=== PATIENT | female | born 1955 | race Caucasian/White ===

== ENCOUNTER → 2017-02-12 | Outpatient (CLI) | payer OTHER, BC ==
[~2017-02-12] MED LIST: 5-HY100C3 PO; ASPI-650 PO; FLUO10TA PO; GLUCOSAMINE 1,1 EACH PO; MELA5TAB19 PO; NAPR500T4 PO; OXYC-302 PO; THYROID ARMOUR PO; ZOLP10TA5 PO
== END | disposition home or self-care (01) ==
LOC: CFH 07:23
PROVIDERS: ATTEND Family Medicine
DX: Z12.31 Encounter for screening mammogram for malignant neoplasm of breast (principal); Z80.3 Family history of malignant neoplasm of breast
CPT/HCPCS: 77063; G0202

== ENCOUNTER 2018-03-06 13:05 | Outpatient (CLI) | payer BC, OTHER ==
[~2018-03-06 13:05] MED LIST changes: +NAPR-685 PO; -NAPR500T4 PO
== END 2018-03-06 23:59 | disposition home or self-care (01) ==
LOC: CFH 13:05
PROVIDERS: ATTEND Family Medicine
DX: Z12.31 Encounter for screening mammogram for malignant neoplasm of breast (principal)
CPT/HCPCS: 77063; 77067

== ENCOUNTER → 2018-12-31 | Outpatient (CLI) | payer OTHER ==
[~2018-12-31] MED LIST changes: +CHOL10003 PO; +CYAN250013 PO; +Collagen PO; +MELA5TAB14 PO; -MELA5TAB19 PO; +NIAC500T85 PO; +THYR15TA PO
== END | disposition home or self-care (01) ==
LOC: STAR 10:08
PROVIDERS: ATTEND Orthopaedic Surgery
DX: Z01.818 Encounter for other preprocedural examination (principal); M17.12 Unilateral primary osteoarthritis, left knee; R94.31 Abnormal electrocardiogram [ECG] [EKG]
CPT/HCPCS: 87081; 93005

== ENCOUNTER 2019-01-08 07:46 | Observation (INO) | payer OTHER ==
[2019-01-07] MEDS: FLUOXETINE 10 MG CAP PO SCH (22:10)
[2019-01-07] MEDS: DOCUSATE 100 MG CAPSULE PO SCH (22:10)
[~2019-01-08] VITALS: Ht 175.3 cm; Wt 106.0 kg
[~2019-01-08 07:46] MED LIST changes: +FENTANYL PF 250 MCG/5ML ONE; +MIDAZOLAM 1 MG/ML, 2ML ONE
[2019-01-08 08:20] VITALS: BP 127/83
[2019-01-08] MEDS ORDERED: LACTATED RINGERS 1,000 ML IV SCH (08:27)
[2019-01-08] MEDS ORDERED: MAGNESIUM HYDROXIDE 8%, 30ML UDC PO PRN (09:00)
[2019-01-08] MEDS: OXYcodone IR 5MG TABLET PO SCH ×3 (09:00→19:46)
[2019-01-08] MEDS ORDERED: BISACODYL 10 MG SUPP PR PRN (09:00)
[2019-01-08] MEDS ORDERED: ONDANSETRON 4 MG TABLET PO PRN (09:00)
[2019-01-08] MEDS ORDERED: SCOPOLAMINE PATCH, 1.5MG PATCH.TD72 TD SCH (09:00)
[2019-01-08] MEDS: ACETAMINOPHEN 325 MG TABLET PO SCH ×4 (09:00→21:00)
[2019-01-08] MEDS ORDERED: ACETAMINOPHEN 500 MG TABLET PO ONE (09:00)
[2019-01-08] MEDS ORDERED: SENNA/DOCUSATE TABLET PO PRN (09:00)
[2019-01-08] MEDS: DOCUSATE 100 MG CAPSULE PO SCH (09:00)
[2019-01-08] MEDS ORDERED: MORPHINE SULFATE 4 MG/ML, 1ML IVPush PRN (09:00)
[2019-01-08] MEDS ORDERED: DIPHENHYDRAMINE 25 MG CAPSULE PO PRN (09:00)
[2019-01-08] MEDS ORDERED: GABAPENTIN 300 MG CAPSULE PO ONE (09:00)
[2019-01-08] MEDS ORDERED: ZOLPIDEM 10MG TABLET PO PRN (09:00)
[2019-01-08] MEDS ORDERED: PROMETHAZINE 12.5 MG SUPP PR PRN (09:00)
[2019-01-08] MEDS ORDERED: SCOPOLAMINE PATCH, 1.5MG PATCH.TD72 TD ONE (09:00)
[2019-01-08] MEDS ORDERED: TRANEXAMIC ACID 100 MG/ML, 10ML ONE ×2 (09:29)
[2019-01-08] MEDS ORDERED: ONDANSETRON 2MG/ML, 2ML ONE (10:25)
[2019-01-08] MEDS ORDERED: PROPOFOL 10 MG/ML, 20ML ONE (10:25)
[2019-01-08] MEDS ORDERED: CEFAZOLIN 1,000 MG ONE (10:25)
[2019-01-08] MEDS ORDERED: DEXAMETHASONE 4 MG/ML, 1ML ONE (10:25)
[2019-01-08] MEDS ORDERED: SUCCINYLCHOLINE 20 MG/ML, 10ML ONE (10:25)
[2019-01-08] MEDS ORDERED: ROCURONIUM 10 MG/ML,10ML ONE (10:25)
[2019-01-08] MEDS ORDERED: ALBUTEROL SULFATE 2.5 MG/3 ML NPPB PRN (11:00)
[2019-01-08] MEDS ORDERED: LABETALOL 5MG/ML, 20ML IV PRN (11:00)
[2019-01-08] MEDS ORDERED: KETOROLAC 30 MG/1 ML IV PRN (11:00)
[2019-01-08] MEDS ORDERED: MEPERIDINE/PF 25MG/0.5ML IVPush PRN (11:00)
[2019-01-08] MEDS ORDERED: PROMETHAZINE 25 MG/ML, 1ML IV PRN (11:00)
[2019-01-08] MEDS ORDERED: METOCLOPRAMIDE 5 MG/ML, 2ML IV PRN (11:00)
[2019-01-08] MEDS ORDERED: OXYcodone 5 MG/5 ML ORAL.SOL UDC PO PRN (11:00)
[2019-01-08] MEDS ORDERED: hydrALAzine 20 MG/ML, 1ML IV PRN (11:00)
[2019-01-08] MEDS ORDERED: FENTANYL PF 100 MCG/2ML IV PRN (11:00)
[2019-01-08] MEDS ORDERED: ONDANSETRON 2MG/ML, 2ML IVPush PRN (11:00)
[2019-01-08] MEDS ORDERED: BUPIVACAINE/PF-EPI 0.25% 1:200K INFIL ONE (11:58)
[2019-01-08] MEDS: KETOROLAC 30 MG/1 ML IV SCH ×2 (12:16→19:45)
[2019-01-08] MEDS ORDERED: HYDROmorphone 1 MG/ML, 1ML VIAL ONE (12:31)
[2019-01-08] MEDS ORDERED: KETOROLAC 30 MG/1 ML ONE (12:31)
[2019-01-08] MEDS: HYDROmorphone 1 MG/ML, 1ML INJ IV PRN ×2 (12:38→12:46)
[2019-01-08] MEDS ORDERED: PROMETHAZINE 25 MG/ML, 1ML ONE (12:44)
[2019-01-08] MEDS ORDERED: OXYcodone 5 MG/5 ML ORAL.SOL UDC ONE (13:08)
[2019-01-08 14:25] VITALS: BP 133/85
[2019-01-08 19:08] VITALS: BP 158/93
[2019-01-08] MEDS: D5%-0.45% NACL 1,000 ML IV SCH (19:45)
[2019-01-08] MEDS: CEFAZOLIN PMX 1GM/50ML 50 ML IVPB SCH (19:45)
[2019-01-08 20:00] VITALS: BP 132/74
[2019-01-09] MEDS: ACETAMINOPHEN 325 MG TABLET PO SCH ×2 (01:48→06:09)
[2019-01-09] MEDS: OXYcodone IR 5MG TABLET PO SCH ×2 (01:48→07:49)
[2019-01-09 03:20] VITALS: BP 113/74
[2019-01-09] MEDS: KETOROLAC 30 MG/1 ML IV SCH (04:23)
[2019-01-09] MEDS: CEFAZOLIN PMX 1GM/50ML 50 ML IVPB SCH (04:23)
[2019-01-09 04:27] VITALS: BP 118/77
[2019-01-09] MEDS: D5%-0.45% NACL 1,000 ML IV SCH (04:35)
[2019-01-09] MEDS ORDERED: THYROID PORK PO SCH (06:00)
[2019-01-09] MEDS: DOCUSATE 100 MG CAPSULE PO SCH (07:48)
[2019-01-09 08:00] VITALS: BP 113/75
[2019-01-09] MEDS: FLUOXETINE 10 MG CAP PO SCH (09:00)
[2019-01-09] MEDS ORDERED: THYROID 60 MG HOMEMEDPO SCH (09:00)
[2019-01-09] MEDS ORDERED: ASPIRIN 325 MG TABLET EC PO SCH (18:00)
== END 2019-01-09 12:15 | disposition home or self-care (01) ==
LOC: OUT 07:46 → ORIP 08:41 → 4NE 14:35 → DCLOUNGE 01-09 12:02
PROVIDERS: ADMIT Orthopaedic Surgery; ATTEND Orthopaedic Surgery
DX: M17.12 Unilateral primary osteoarthritis, left knee (principal); E66.9 Obesity, unspecified; E07.9 Disorder of thyroid, unspecified; Z68.35 Body mass index [BMI] 35.0-35.9, adult; Z79.899 Other long term (current) drug therapy; Z87.891 Personal history of nicotine dependence; F10.10 Alcohol abuse, uncomplicated; Z86.718 Personal history of other venous thrombosis and embolism; Z91.040 Latex allergy status; Z88.8 Allergy status to other drugs, medicaments and biological substances; Z91.048 Other nonmedicinal substance allergy status
CPT/HCPCS: 27447; 73560; 96365; 96366; 96375; 96376; 97161; C1713; C1776; G0378; J0330; J0690; J1100; J1170; J1885; J2250; J2405; J2550; J2704; J3010; J7120

== ENCOUNTER 2019-01-27 20:04 | Inpatient (IN) | payer OTHER ==
[~2019-01-27] VITALS: Ht 175.3 cm; Wt 107.4 kg
[~2019-01-27 20:04] MED LIST changes: -FENTANYL PF 250 MCG/5ML ONE; -MIDAZOLAM 1 MG/ML, 2ML ONE
--- NOTE | 2019-01-27 20:27 | NUR ---
Pt to ED from home w/ . nausea/vomiting since Saturday. also c/o SOB, fever, dark urine, cough. Denies abd/back pain. A&Ox4 GCS 15. Beckie NOONAN at bedside. vss, tachy 100s. no flu shot this year.
[2019-01-27] MEDS ORDERED: IBUPROFEN 200 MG TABLET ONE (20:39)
[2019-01-27] MEDS ORDERED: IBUPROFEN 600 MG TABLET PO ONE (21:00)
[2019-01-27] MEDS ORDERED: SODIUM CHLORIDE 0.9% 1,000ML IVBOLUS ONE (21:00)
[2019-01-27] MEDS ORDERED: SODIUM CHLORIDE FLUSH 10ML SYR IVF ONE (21:00)
[2019-01-27 21:03] LABS: BASOPHILS % (AUTO) 0 % (0-1); EOSINOPHILS # (AUTO) 0.02 x10^3/uL (0-0.4); EOSINOPHILS % (AUTO) 0 % (1-7); LYMPHOCYTES # (AUTO) 0.53 x10^3/uL (1-3.4); LYMPHOCYTES % (AUTO) 6 % (22-44); MD NO; MEAN CORPUSCULAR HEMOGLOBIN 28.9 pg (27.0-34.8); MEAN CORPUSCULAR HGB CONC 32.3 g/dL (32.4-35.8); MEAN CORPUSCULAR VOLUME 89.6 fL (80-100); MEAN PLATELET VOLUME 7.3 fL (7.4-10.4); MONOCYTES # (AUTO) 0.44 x10^3/uL (0.2-0.8); MONOCYTES % (AUTO) 5 % (2-9); NEUTROPHILS # (AUTO) 8.53 x10^3/uL (1.8-6.8); NEUTROPHILS % (AUTO) 90 % (42-75); PLATELET COUNT 272 x10^3/uL (130-400); RED BLOOD COUNT 4.28 x10^6/uL (3.82-5.3); RED CELL DISTRIBUTION WIDTH 13.6 % (9.6-15.2)
[2019-01-27 21:12] LABS: ALANINE AMINOTRANSFERASE 40 U/L (12-78); ALBUMIN 2.9 g/dL (3.4-5.0); ANION GAP 7 mmol/L (5-15); CALCIUM 9.4 mg/dL (8.5-10.1); CHLORIDE 99 mmol/L (98-107); CREATININE 1.83 mg/dL (0.55-1.02)
[2019-01-27 21:14] LABS: ALKALINE PHOSPHATASE 204 U/L (45-117); BILIRUBIN,TOTAL 0.9 mg/dL (0.2-1.0); TOTAL PROTEIN 7.8 g/dL (6.4-8.2)
[2019-01-27 21:16] LABS: CULTURE INDICATED? YES; MICROSCOPIC INDICATED
--- NOTE | 2019-01-27 21:17 | NUR ---
labs drawn and sent, piv est, ivf infusing, flu swab sent, cxr pending. call lemus in reach. as
[2019-01-27 21:32] LABS: RAPID INFLUENZA A Negative (Negative); RAPID INFLUENZA B Negative (Negative)
[2019-01-27] MEDS ORDERED: CEFTRIAXONE PMX 1GM/50ML 50 ML ONE (21:57)
[2019-01-27] MEDS ORDERED: CEFTRIAXONE PMX 1GM/50ML 50 ML IV ONE ×2 (22:00→23:00)
--- NOTE | 2019-01-27 22:01 | NUR ---
pt to be admitted. pt aware and agrees. lab at bedside drawing cultures. abx to hang after. vss. call lemus in reach. as
--- NOTE | 2019-01-27 22:16 | NUR ---
REPORT TO ARELIS MORALES [id number]
--- NOTE | 2019-01-27 22:48 | NUR ---
F/U CALL PLACED TO CT REGARDING DELAY IN TESTING SO PT CAN BE TAKEN TO FLOOR, TECH STS PT IS UP NEXT.
--- NOTE | 2019-01-27 22:56 | NUR ---
PT AT CT.
[2019-01-27] MEDS ORDERED: PROMETHAZINE 25 MG/ML, 1ML IM PRN (23:00)
[2019-01-27] MEDS ORDERED: BISACODYL 10 MG SUPP PR PRN (23:00)
[2019-01-27] MEDS ORDERED: POLYETHYLENE GLYCOL 17 GM PACKET PO PRN (23:00)
[2019-01-27] MEDS ORDERED: DOCUSATE 100 MG CAPSULE PO PRN (23:00)
[2019-01-27] MEDS ORDERED: hydrALAzine 20 MG/ML, 1ML IVPush PRN (23:00)
[2019-01-27] MEDS ORDERED: OXYcodone IR 5MG TABLET PO PRN (23:00)
[2019-01-27] MEDS ORDERED: ONDANSETRON 2MG/ML, 2ML IVPush PRN (23:00)
[2019-01-27 23:19] VITALS: BP 108/64
[2019-01-27 23:27] LABS: FREE T4 (FREE THYROXINE) 1.07 ng/dL (0.76-1.46)
[2019-01-27 23:28] LABS: HEMOGLOBIN A1C 5.9 % (4.2-6.3)
[2019-01-27 23:45] VITALS: BP 108/69
[2019-01-28] MEDS: SODIUM CHLORIDE 0.9% 1,000 ML IV SCH ×2 (00:40→08:31)
[2019-01-28] MEDS: ZOLPIDEM 10MG TABLET PO SCH ×2 (00:46→22:03)
[2019-01-28 07:18] LABS: MEAN CORPUSCULAR HEMOGLOBIN 28.8 pg (27.0-34.8); MEAN CORPUSCULAR HGB CONC 32.8 g/dL (32.4-35.8); MEAN CORPUSCULAR VOLUME 87.7 fL (80-100); PLATELET COUNT 231 x10^3/uL (130-400); RED BLOOD COUNT 4.01 x10^6/uL (3.82-5.3); RED CELL DISTRIBUTION WIDTH 13.8 % (9.6-15.2)
[2019-01-28 07:25] LABS: ALANINE AMINOTRANSFERASE 34 U/L (12-78); ALBUMIN 2.7 g/dL (3.4-5.0); ANION GAP 8 mmol/L (5-15); CALCIUM 9.1 mg/dL (8.5-10.1); CHLORIDE 102 mmol/L (98-107); CREATININE 1.53 mg/dL (0.55-1.02)
[2019-01-28 07:27] LABS: ALKALINE PHOSPHATASE 192 U/L (45-117); BILIRUBIN,TOTAL 0.6 mg/dL (0.2-1.0); CHOL/HDL RATIO 16.9; CHOLESTEROL, TOTAL 135 mg/dL (140-239); HDL CHOL % 6 % (28-40); HDL CHOLESTEROL (DIRECT) 8 mg/dL (40-60); LDL CHOLESTEROL,CALCULATED 67 mg/dL (54-169); LDL/HDL RATIO 8.4 (0.5-3.0); TOTAL PROTEIN 7.4 g/dL (6.4-8.2); TRIGLYCERIDES 301 mg/dL (50-200); VLDL CHOLESTEROL 60 mg/dL (0-25)
[2019-01-28 07:48] LABS: BASOPHILS # (AUTO) 0.02 x10^3/uL (0-0.1); BASOPHILS % (AUTO) 0 % (0-1); EOSINOPHILS # (AUTO) 0.02 x10^3/uL (0-0.4); EOSINOPHILS % (AUTO) 0 % (1-7); LYMPHOCYTES # (AUTO) 0.58 x10^3/uL (1-3.4); LYMPHOCYTES % (AUTO) 7 % (22-44); MD SCAN; MONOCYTES # (AUTO) 0.55 x10^3/uL (0.2-0.8); MONOCYTES % (AUTO) 7 % (2-9); NEUTROPHILS # (AUTO) 7.05 x10^3/uL (1.8-6.8); NEUTROPHILS % (AUTO) 86 % (42-75)
[2019-01-28] MEDS: FLUOXETINE 10 MG CAP PO SCH (08:31)
[2019-01-28 08:38] VITALS: BP 114/76
[2019-01-28 12:30] VITALS: BP 144/82
[2019-01-28] MEDS: THYROID 30 MG TABLET PO SCH (12:59)
[2019-01-28 19:14] VITALS: BP 129/77
[2019-01-28] MEDS: ONDANSETRON ODT 4 MG PO PRN (19:57)
[2019-01-28] MEDS: CEFTRIAXONE PMX 2GM/50ML 50 ML IV SCH (22:04)
[2019-01-28] MEDS: ACETAMINOPHEN 325 MG TABLET PO PRN (22:16)
[2019-01-29 00:07] VITALS: BP 122/76
[2019-01-29 06:11] LABS: BASOPHILS # (AUTO) 0.01 x10^3/uL (0-0.1); BASOPHILS % (AUTO) 0 % (0-1); EOSINOPHILS # (AUTO) 0.03 x10^3/uL (0-0.4); EOSINOPHILS % (AUTO) 0 % (1-7); LYMPHOCYTES # (AUTO) 0.77 x10^3/uL (1-3.4); LYMPHOCYTES % (AUTO) 11 % (22-44); MD NO; MEAN CORPUSCULAR HEMOGLOBIN 28.3 pg (27.0-34.8); MEAN CORPUSCULAR HGB CONC 32.1 g/dL (32.4-35.8); MEAN CORPUSCULAR VOLUME 88.1 fL (80-100); MEAN PLATELET VOLUME 7.8 fL (7.4-10.4); MONOCYTES # (AUTO) 0.65 x10^3/uL (0.2-0.8); MONOCYTES % (AUTO) 9 % (2-9); NEUTROPHILS # (AUTO) 5.61 x10^3/uL (1.8-6.8); NEUTROPHILS % (AUTO) 79 % (42-75); PLATELET COUNT 205 x10^3/uL (130-400); RED BLOOD COUNT 3.96 x10^6/uL (3.82-5.3); RED CELL DISTRIBUTION WIDTH 13.9 % (9.6-15.2)
[2019-01-29] MEDS: THYROID 30 MG TABLET PO SCH (06:19)
[2019-01-29 06:31] LABS: ANION GAP 7 mmol/L (5-15); CHLORIDE 105 mmol/L (98-107); CREATININE 1.25 mg/dL (0.55-1.02)
[2019-01-29 07:08] VITALS: BP 120/72
[2019-01-29] MEDS: FLUOXETINE 10 MG CAP PO SCH (10:43)
[2019-01-29] MEDS: ACETAMINOPHEN 325 MG TABLET PO PRN ×2 (12:10→21:31)
[2019-01-29] MEDS: ONDANSETRON ODT 4 MG PO PRN ×2 (12:10→17:41)
[2019-01-29 13:49] VITALS: BP 120/77
[2019-01-29 19:13] VITALS: BP 147/82
[2019-01-29] MEDS: ZOLPIDEM 10MG TABLET PO SCH (21:26)
[2019-01-29] MEDS: CEFTRIAXONE PMX 2GM/50ML 50 ML IV SCH (21:26)
[2019-01-30 00:34] VITALS: BP 115/71
[2019-01-30 03:07] LABS: MICROSCOPIC AUTO
[2019-01-30 03:10] LABS: CULTURE INDICATED? YES
[2019-01-30 06:50] VITALS: BP 121/78
[2019-01-30] MEDS: FLUOXETINE 10 MG CAP PO SCH (07:59)
[2019-01-30] MEDS: THYROID 30 MG TABLET PO SCH (08:00)
[2019-01-30 12:50] LABS: ANION GAP 11 mmol/L (5-15); CALCIUM 9.4 mg/dL (8.5-10.1); CHLORIDE 101 mmol/L (98-107)
[2019-01-30 12:51] VITALS: BP 114/75
[2019-01-30 12:51] LABS: BASOPHILS # (AUTO) 0.04 x10^3/uL (0-0.1); BASOPHILS % (AUTO) 0 % (0-1); EOSINOPHILS # (AUTO) 0.21 x10^3/uL (0-0.4); EOSINOPHILS % (AUTO) 2 % (1-7); LYMPHOCYTES # (AUTO) 1.05 x10^3/uL (1-3.4); LYMPHOCYTES % (AUTO) 10 % (22-44); MD NO; MEAN CORPUSCULAR HEMOGLOBIN 29.1 pg (27.0-34.8); MEAN CORPUSCULAR HGB CONC 32.5 g/dL (32.4-35.8); MEAN CORPUSCULAR VOLUME 89.4 fL (80-100); MONOCYTES # (AUTO) 1.05 x10^3/uL (0.2-0.8); MONOCYTES % (AUTO) 10 % (2-9); NEUTROPHILS # (AUTO) 8.58 x10^3/uL (1.8-6.8); NEUTROPHILS % (AUTO) 79 % (42-75); PLATELET COUNT 291 x10^3/uL (130-400); RED BLOOD COUNT 4.14 x10^6/uL (3.82-5.3); RED CELL DISTRIBUTION WIDTH 14.3 % (9.6-15.2)
[2019-01-30 12:53] LABS: CREATININE 1.11 mg/dL (0.55-1.02)
[2019-01-30] MEDS: ONDANSETRON ODT 4 MG PO PRN (13:06)
[2019-01-30] MEDS ORDERED: POTASSIUM CHLORIDE 20 MEQ TAB.ER.PRT PO ONE (14:30)
[2019-01-30 20:07] VITALS: BP 127/71
[2019-01-30] MEDS: ZOLPIDEM 10MG TABLET PO SCH (21:04)
[2019-01-30] MEDS: CEFTRIAXONE PMX 2GM/50ML 50 ML IV SCH (21:04)
[2019-01-31 01:47] VITALS: BP 120/65
[2019-01-31] MEDS: THYROID 30 MG TABLET PO SCH (05:29)
[2019-01-31 07:36] VITALS: BP 106/69
[2019-01-31] MEDS: FLUOXETINE 10 MG CAP PO SCH (07:50)
[2019-01-31 08:47] LABS: BASOPHILS # (AUTO) 0.02 x10^3/uL (0-0.1); BASOPHILS % (AUTO) 0 % (0-1); EOSINOPHILS # (AUTO) 0.11 x10^3/uL (0-0.4); EOSINOPHILS % (AUTO) 1 % (1-7); LYMPHOCYTES # (AUTO) 1.16 x10^3/uL (1-3.4); LYMPHOCYTES % (AUTO) 15 % (22-44); MD NO; MEAN CORPUSCULAR HEMOGLOBIN 28.4 pg (27.0-34.8); MEAN CORPUSCULAR HGB CONC 32.7 g/dL (32.4-35.8); MEAN CORPUSCULAR VOLUME 87.1 fL (80-100); MEAN PLATELET VOLUME 7.4 fL (7.4-10.4); MONOCYTES # (AUTO) 0.86 x10^3/uL (0.2-0.8); MONOCYTES % (AUTO) 11 % (2-9); NEUTROPHILS # (AUTO) 5.59 x10^3/uL (1.8-6.8); NEUTROPHILS % (AUTO) 72 % (42-75); PLATELET COUNT 278 x10^3/uL (130-400); RED BLOOD COUNT 3.54 x10^6/uL (3.82-5.3); RED CELL DISTRIBUTION WIDTH 14.2 % (9.6-15.2)
[2019-01-31 08:52] LABS: ANION GAP 6 mmol/L (5-15); CALCIUM 8.6 mg/dL (8.5-10.1); CHLORIDE 105 mmol/L (98-107); CREATININE 1.05 mg/dL (0.55-1.02)
[2019-01-31] MEDS ORDERED: CEFD300C37 PO (09:47)
== END 2019-01-31 11:43 | disposition home or self-care (01) | DRG 683 ==
LOC: ED 21:56 → EDIP 22:00 → 4NW 23:15 → DCLOUNGE 01-31 11:34
PROVIDERS: ADMIT Internal Medicine; ATTEND Family Medicine
DX: N17.0 Acute kidney failure with tubular necrosis (principal); E87.1 Hypo-osmolality and hyponatremia; R78.81 Bacteremia; N20.1 Calculus of ureter; N10 Acute pyelonephritis; Z91.040 Latex allergy status; B96.89 Other specified bacterial agents as the cause of diseases classified elsewhere; E03.9 Hypothyroidism, unspecified; E88.09 Other disorders of plasma-protein metabolism, not elsewhere classified; Z88.8 Allergy status to other drugs, medicaments and biological substances; F32.9 Major depressive disorder, single episode, unspecified; K59.00 Constipation, unspecified; N13.9 Obstructive and reflux uropathy, unspecified; Z90.710 Acquired absence of both cervix and uterus; Z96.653 Presence of artificial knee joint, bilateral; Z98.1 Arthrodesis status
CPT/HCPCS: 36415; 71045; 74176; 80048; 80053; 80061; 81001; 83036; 83735; 84439; 84443; 85025; 87040; 87077; 87086; 87186; 87400; 93005; 96361; 96374; G0378; J0696; Q0162; J7030

== ENCOUNTER → 2019-02-15 | Outpatient (CLI) | payer OTHER ==
[~2019-02-15] MED LIST changes: +CEFD300C37 PO
== END | disposition home or self-care (01) ==
LOC: RAD 10:36
PROVIDERS: ATTEND Urology
DX: N20.0 Calculus of kidney (principal)
CPT/HCPCS: 74018

== ENCOUNTER 2019-02-16 09:10 | Day surgery (SDC) | payer OTHER ==
[~2019-02-16] VITALS: Ht 175.3 cm; Wt 99.8 kg
[2019-02-16] MEDS ORDERED: LACTATED RINGERS 1,000 ML IV STA (09:45)
[2019-02-16] MEDS ORDERED: CEFD300C37 PO (09:48)
[2019-02-16 09:54] VITALS: BP 136/86
[2019-02-16] MEDS ORDERED: LACTATED RINGERS 1,000 ML IV ONE (10:30)
[2019-02-16] MEDS ORDERED: SCOPOLAMINE PATCH, 1.5MG PATCH.TD72 TD ONE ×2 (12:36→13:00)
[2019-02-16] MEDS ORDERED: PROPOFOL 10 MG/ML, 20ML ONE (12:43)
[2019-02-16] MEDS ORDERED: GENTAMICIN 80 MG/2 ML ONE (12:43)
[2019-02-16] MEDS ORDERED: SUCCINYLCHOLINE 20 MG/ML, 10ML ONE (12:43)
[2019-02-16] MEDS ORDERED: CEFAZOLIN 1,000 MG ONE (12:43)
[2019-02-16] MEDS ORDERED: ROCURONIUM 10MG/ML,5ML ONE (12:43)
[2019-02-16] MEDS ORDERED: MIDAZOLAM 1 MG/ML, 2ML ONE (12:44)
[2019-02-16] MEDS ORDERED: KETOROLAC 30 MG/1 ML IV PRN (13:30)
[2019-02-16] MEDS ORDERED: hydrALAzine 20 MG/ML, 1ML IV PRN (13:30)
[2019-02-16] MEDS ORDERED: MEPERIDINE/PF 25MG/0.5ML IVPush PRN (13:30)
[2019-02-16] MEDS ORDERED: ALBUTEROL SULFATE 2.5 MG/3 ML NPPB PRN (13:30)
[2019-02-16] MEDS ORDERED: ONDANSETRON 2MG/ML, 2ML IVPush PRN (13:30)
[2019-02-16] MEDS ORDERED: OXYcodone 5 MG/5 ML ORAL.SOL UDC PO PRN (13:30)
[2019-02-16] MEDS ORDERED: FENTANYL PF 100 MCG/2ML IV PRN (13:30)
[2019-02-16] MEDS ORDERED: PROMETHAZINE 25 MG/ML, 1ML IV PRN (13:30)
[2019-02-16] MEDS ORDERED: METOCLOPRAMIDE 5 MG/ML, 2ML IV PRN (13:30)
[2019-02-16] MEDS ORDERED: HYDROmorphone 1 MG/ML, 1ML INJ IV PRN (13:30)
[2019-02-16] MEDS ORDERED: LABETALOL 5MG/ML, 20ML IV PRN (13:30)
[2019-02-16] MEDS ORDERED: KETOROLAC 30 MG/1 ML ONE (13:53)
[2019-02-16] MEDS ORDERED: ONDANSETRON 2MG/ML, 2ML ONE (13:53)
[2019-02-16] MEDS ORDERED: KETOROLAC 30 MG/1 ML IVPush ONE (14:00)
== END 2019-02-16 15:50 | disposition home or self-care (01) ==
LOC: OR 09:10
PROVIDERS: ATTEND Urology
DX: N20.2 Calculus of kidney with calculus of ureter (principal); F41.8 Other specified anxiety disorders; Z79.890 Hormone replacement therapy; Z79.891 Long term (current) use of opiate analgesic; Z79.899 Other long term (current) drug therapy; Z96.652 Presence of left artificial knee joint
CPT/HCPCS: 52353; 74018; 82360; 88300; C1769; J0330; J0690; J1580; J1885; J2250; J2704; J7120; 76000

== ENCOUNTER → 2019-11-09 | Outpatient (CLI) | payer OTHER | END | disposition home or self-care (01) | LOC: CFH 13:00 | PROVIDERS: ATTEND Family Medicine | DX: Z12.31 Encounter for screening mammogram for malignant neoplasm of breast (principal) | CPT/HCPCS: 77063; 77067 ==

== ENCOUNTER → 2020-11-11 | Outpatient (CLI) | payer MEDICARE, OTHER ==
[~2020-11-11] MED LIST changes: +ASPI-1026 PO; -ASPI-650 PO; -OXYC-302 PO; +OXYC1TAB12 PO
== END | disposition home or self-care (01) ==
LOC: CFH 10:37
PROVIDERS: ATTEND Family Medicine
DX: Z12.31 Encounter for screening mammogram for malignant neoplasm of breast (principal); N95.8 Other specified menopausal and perimenopausal disorders
CPT/HCPCS: 77063; 77067; 77080